=== PATIENT | female | born 1975 | race Caucasian/White ===

== ENCOUNTER 2024-09-29 15:09 | Day surgery (SDC) | payer BC ==
[2024-09-29] MEDS ORDERED: LIDOCAINE HCL 1% AMPUL 5 ML IJ ONE (15:10)
[2024-09-29] MEDS ORDERED: BUPIVACAINE 0.5% VIAL IJ ONE (15:10)
[2024-09-29] MEDS ORDERED: Depo-Medrol 40 MG/ML IM ONE (15:10)
--- NOTE | 2024-09-29 18:37 | XRAY ---
Indication: Left hip injection. Intraoperative fluoroscopy provided for 1 minute 10 seconds. Single digital spot images submitted for interpretation demonstrates needle tip projecting lateral to left femur neck. Small amount of contrast injected for needle tip placement. Correlate with intraoperative findings/report.
--- NOTE | 2024-09-30 09:22 | XRAY ---
One minute and 10 seconds of fluoroscopy was used in surgery for a left intra-articular hip injection.
== END 2024-09-29 17:35 | disposition home or self-care (01) ==
LOC: SDC-PAIN 15:09
PROVIDERS: ATTEND Psychiatry & Neurology Pain Medicine
DX: M16.12 Unilateral primary osteoarthritis, left hip (principal); E11.9 Type 2 diabetes mellitus without complications
CPT/HCPCS: 20610; 73501; 77002; 82947; Q9966

== ENCOUNTER 2024-12-08 15:39 | Day surgery (SDC) | payer BC ==
[2024-12-08] MEDS ORDERED: Depo-Medrol 40 MG/ML IM ONE (15:40)
[2024-12-08] MEDS ORDERED: LIDOCAINE HCL 1% AMPUL 5 ML IJ ONE (15:40)
[2024-12-08] MEDS ORDERED: BUPIVACAINE 0.5% VIAL IJ ONE (15:40)
--- NOTE | 2024-12-08 18:47 | XRAY ---
Indication: Left greater trochanter bursa injection. Intraoperative fluoroscopy provided for 14 seconds. Single digital spot image submitted for interpretation demonstrates needle tip projecting lateral to left greater trochanter. Small amount of contrast injected for needle tip placement. Correlate with intraoperative findings/report.
--- NOTE | 2024-12-08 19:09 | XRAY ---
14 seconds of fluoroscopy were used in surgery for a left greater trochanteric bursa injection.
== END 2024-12-08 17:25 | disposition home or self-care (01) ==
LOC: SDC-PAIN 15:39
PROVIDERS: ATTEND Psychiatry & Neurology Pain Medicine
DX: M16.12 Unilateral primary osteoarthritis, left hip (principal); E11.9 Type 2 diabetes mellitus without complications
CPT/HCPCS: 20610; 73501; 77002; 82947; Q9966